=== PATIENT | female | born 1950 | race Caucasian/White ===

== ENCOUNTER 2018-10-07 06:11 | Observation (INO) | payer MEDICARE, OTHER ==
[2018-10-07] MEDS ORDERED: BUPIVACAINE 0.25% (MPF) 30 ML INJ (06:30)
[2018-10-07] MEDS ORDERED: CEFAZOLIN 1 GM INJ (07:00)
[2018-10-07] MEDS: BUPIVACAINE 0.25% (MPF) 30 ML INJ INJ (07:15)
[2018-10-07] MEDS ORDERED: MIDAZOLAM 1 MG/ML 2 ML INJ (07:25)
[2018-10-07] MEDS ORDERED: PROPOFOL 40 ML (07:25)
[2018-10-07] MEDS ORDERED: LIDOCAINE 2% (SDV) 5 ML INJ (07:25)
[2018-10-07] MEDS ORDERED: DEXAMETHASONE 4 MG/ML 1 ML INJ (07:26)
[2018-10-07] MEDS ORDERED: FENTAnyl 50 MCG/ML VIAL (07:26)
[2018-10-07] MEDS ORDERED: ACETAMINOPHEN 1000MG/100ML IV 100 ML (07:26)
[2018-10-07] MEDS ORDERED: ONDANSETRON 4 MG INJ (07:26)
[2018-10-07] MEDS ORDERED: MAGNESIUM SULFATE 1 GM/D5W 100 ML (07:27)
[2018-10-07] MEDS ORDERED: morphine (1 MG/ML) 10ML SYRINGE IV (07:30)
[2018-10-07] MEDS ORDERED: FENTAnyl 50 MCG/ML VIAL IV ×2 (07:30)
[2018-10-07] MEDS ORDERED: HYDROmorphONE 1 MG/5 ML IV SYRINGE IV ×2 (07:30)
[2018-10-07] MEDS ORDERED: LABETALOL HCL 20MG INJ IV (07:30)
[2018-10-07] MEDS ORDERED: ALBUTEROL 0.083% (NEB) 2.5 MG/3 ML AMP HHN (07:30)
[2018-10-07] MEDS ORDERED: FAMOTIDINE 20 MG INJ (07:31)
[2018-10-07] MEDS ORDERED: HYDROmorphONE 2 MG/ML SYG (08:27)
[2018-10-07] MEDS ORDERED: ONDANSETRON 4 MG INJ IV ×2 (09:00→13:30)
[2018-10-07] MEDS ORDERED: OXYCODONE/ACETAMINOPHEN (5/325) TAB PO ×2 (09:00)
[2018-10-07] MEDS: ONDANSETRON 4 MG INJ IV (09:23)
[2018-10-07] MEDS: DIPHENHYDRAMINE 50 MG INJ IV (09:24)
[2018-10-07] MEDS: MEPERIDINE 25 MG INJ IV (09:24)
[2018-10-07] MEDS: morphine 2 MG INJ IV (13:49)
[2018-10-07] MEDS: ACETAMINOPHEN 325 MG TAB PO (20:52)
[2018-10-07] MEDS: DOCUSATE SODIUM 100 MG CAP PO (20:52)
[2018-10-07] MEDS: FAMOTIDINE 20 MG TAB PO (21:00)
[2018-10-07] MEDS: DIAZEPAM 5 MG TAB PO (21:40)
[2018-10-08] MEDS: POLYETHYLENE GLYCOL 17 GM PACKET NGT (08:38)
[2018-10-08] MEDS: FLUOXETINE 20 MG CAP PO (08:38)
[2018-10-08] MEDS: FAMOTIDINE 20 MG TAB PO (08:38)
[2018-10-08] MEDS: DOCUSATE SODIUM 100 MG CAP PO (08:38)
[2018-10-08] MEDS: AMLODIPINE 5 MG TAB PO (08:39)
[2018-10-08] MEDS: morphine 2 MG INJ IV ×2 (10:57→14:57)
== END 2018-10-08 16:00 | disposition home health service (06) ==
LOC: REC 06:11 → PP2 09:51
DX: N65.1 Disproportion of reconstructed breast (principal); N60.32 Fibrosclerosis of left breast; I10 Essential (primary) hypertension; F41.9 Anxiety disorder, unspecified; F32.9 Major depressive disorder, single episode, unspecified; Z86.73 Personal history of transient ischemic attack (TIA), and cerebral infarction without residual deficits; G43.909 Migraine, unspecified, not intractable, without status migrainosus; Z85.3 Personal history of malignant neoplasm of breast
CPT/HCPCS: 19303; 87086; 88307; 99217